=== PATIENT | female | born 1970 ===

== ENCOUNTER 2018-09-20 13:09 | Outpatient (CLI) | payer OTHER | END 2018-09-20 14:54 | disposition home or self-care (01) | LOC: SONOGRAMA 13:09 | DX: E04.1 Nontoxic single thyroid nodule (principal) ==

== ENCOUNTER → 2021-02-22 | Outpatient (CLI) | payer OTHER | END | disposition home or self-care (01) | LOC: SONOGRAMA 08:12 | PROVIDERS: ATTEND Pathology Anatomic Pathology & Clinical Pathology | DX: D34 Benign neoplasm of thyroid gland (principal); E06.3 Autoimmune thyroiditis ==

== ENCOUNTER 2024-12-30 10:24 | Outpatient (CLI) | payer OTHER | END 2024-12-30 10:27 | disposition home or self-care (01) | LOC: SONOGRAMA 10:24 | PROVIDERS: ATTEND Pathology Anatomic Pathology | DX: D34 Benign neoplasm of thyroid gland (principal); E07.89 Other specified disorders of thyroid; E04.2 Nontoxic multinodular goiter ==